=== PATIENT | female | born 1975 ===

== ENCOUNTER 2018-04-18 09:17 | Emergency (ER) | payer OTHER ==
--- NOTE | 2018-04-18 09:25 | ED PDOC ---
HPI: General Adult Time Seen by Provider: 04/18/18 09:24 Chief Complaint (Provider): headache History Per: Patient Additional Complaint(s): 42 y/o female presents with right side occipital headache x 1 week. Patient denies any trauma or injury. She was seen 3 days ago at urgent care and was given toradol IM which did help with headache for about 1 day. Since then she has been taking excedrin which has not helped. Patient states that pain is now 9/10. She last took excedrin yesterday. No associated fever, chills, vision changes, nausea or vomiting. Past Medical History Reviewed: Historical Data, Nursing Documentation, Vital Signs Vital Signs: Last Vital Signs Temp 97.9 F 04/18/18 09:21 Pulse 82 04/18/18 09:21 Resp 17 04/18/18 09:21 BP 111/77 04/18/18 09:21 Pulse Ox 98 04/18/18 09:21 - Medical History PMH: No Chronic Diseases - Surgical History Other surgeries: right knee surgery - Family History Family History: States: No Known Family Hx - Living Arrangements Living Arrangements: With Family - Social History Current smoker - smoking cessation education provided: No Alcohol: None Drugs: Denies - Home Medications Home Medications: Ambulatory Orders Medication Instructions Recorded Ibuprofen [Motrin] 600 mg PO Q6 PRN #24 tab 04/18/18 Metoclopramide [Reglan] 10 mg PO Q6 PRN #20 tab 04/18/18 - Allergies Allergies/Adverse Reactions: Allergies Allergy/AdvReac Type Severity Reaction Status Date / Time No Known Allergies Allergy Verified 04/18/18 09:30 Review of Systems ROS Statement: Except As Marked, All Systems Reviewed And Found Negative Constitutional: Negative for: Fever, Chills Eyes: Negative for: Vision Change Cardiovascular: Negative for: Chest Pain Respiratory: Negative for: Cough Gastrointestinal: Negative for: Nausea, Vomiting Neurological: Positive for: Headache. Negative for: Weakness, Numbness, Dizziness Physical Exam - Reviewed Nursing Documentation Reviewed: Yes Vital Signs Reviewed: Yes - Physical Exam Appears: Positive for: Well, Non-toxic, No Acute Distress Head Exam: Positive for: ATRAUMATIC, NORMAL INSPECTION Skin: Positive for: Normal Color. Negative for: Rash Eye Exam: Positive for: Normal appearance Neck: Positive for: Normal Cardiovascular/Chest: Positive for: Regular Rate, Rhythm Respiratory: Positive for: Normal Breath Sounds. Negative for: Respiratory Distress Back: Positive for: Normal Inspection Extremity: Positive for: Normal ROM Neurologic/Psych: Positive for: Alert, Oriented - Laboratory Results Urine POC: Negative - ECG O2 Sat by Pulse Oximetry: 98 Pulse Ox Interpretation: Normal - Other Rad CT head X-Ray: Read By Radiologist X-Ray Interpretation: No acute pathology Medical Decision Making Medical Decision Makin42 y/o with ride side headache Plan: test CT head IM reglan IM toradol Patient is aware of CT head results, all questions answered. Patient reports improvement pain after meds given. Prescriptions provided for ibuprofen and Reglan. Patient was referred to neurologist application processor and advised to follow up for any persistent symptoms. Disposition - Clinical Impression Clinical Impression: Tension headache - Patient ED Disposition Is Patient to be Admitted: No Counseled Patient/Family Regarding: Studies Performed, Diagnosis, Need For Followup, Rx Given - Disposition Referrals: Renate Mckenzie MD [Medical Doctor] - Disposition: Routine/Home Disposition Time: 11:34 Condition: IMPROVED Additional Instructions: Take prescription meds as directed. Drink plenty of fluids. Follow-up with neurologist for any persistent symptoms. Prescriptions: Ibuprofen [Motrin] 600 mg PO Q6 PRN #24 tab PRN Reason: Pain, Moderate (4-7) Metoclopramide [Reglan] 10 mg PO Q6 PRN #20 tab PRN Reason: Nausea/Vomiting Instructions: Tension Headache
[2018-04-18 09:42] VITALS: BP 111/77; PULSE 82; RESP 17; TEMP 97.9; O2SAT 98; BMI 42.9
--- NOTE | 2018-04-18 11:00 | CT ---
Date of service: 04/18/2018 PROCEDURE: CT HEAD WITHOUT CONTRAST. HISTORY: right side headache x 1 week COMPARISON: None. TECHNIQUE: Axial computed tomography images were obtained through the head/brain without intravenous contrast. Radiation dose: Total exam DLP = 834.55 mGy-cm. This CT exam was performed using one or more of the following dose reduction techniques: Automated exposure control, adjustment of the mA and/or kV according to patient size, and/or use of iterative reconstruction technique. FINDINGS: HEMORRHAGE: No intracranial hemorrhage. BRAIN: No mass effect or edema. No atrophy or chronic microvascular ischemic changes. VENTRICLES: Unremarkable. No hydrocephalus. CALVARIUM: Unremarkable. PARANASAL SINUSES: Unremarkable as visualized. No significant inflammatory changes. MASTOID AIR CELLS: Unremarkable as visualized. No inflammatory changes. OTHER FINDINGS: None. IMPRESSION: No acute intracranial pathology.
== END 2018-04-18 11:44 | disposition home or self-care (01) ==
LOC: H.ER 09:17
DX: G44.209 Tension-type headache, unspecified, not intractable (principal)
CPT/HCPCS: 70450; 81025; 96372; 99285; J1885; J2765